=== PATIENT | male | born 1995 | race Caucasian/White ===

== ENCOUNTER 2020-10-18 08:02 | Inpatient (IN) | payer MEDICAID, OTHER ==
[~2020-10-18] VITALS: Ht 190.5 cm; Wt 79.5 kg
[2020-10-18] MEDS ORDERED: iohexol 300mg/ml 100ml inj. ONE (10:01)
--- NOTE | 2020-10-18 10:10 | NUR ---
Patient expressed concern about obtaining IV contrast due to his Mother's diagnosis of porphyria. Risks/benefits of not receiving CT scan explained. Pt consented to scan.
--- NOTE | 2020-10-18 11:25 | NUR ---
Patient states he takes Valium, no record found in pharmacy. Patient states he obtains valium in [place]. He states he traveled there one week ago and obtained Valium at that time. He states he takes 2mg QID or "as much as he needs."
[2020-10-18] MEDS ORDERED: acetaminophen 325mg tablet PO PRN ×2 (11:55)
[2020-10-18] MEDS ORDERED: magnesium 2GM in 50ml NS 50 ML IV PRN (11:55)
[2020-10-18] MEDS ORDERED: HYDROcodone/acetaminophen 5mg/325mg tablet PO PRN (11:55)
[2020-10-18] MEDS ORDERED: potassium Cl 20 mEq SR tablet PO PRN ×2 (11:55)
[2020-10-18] MEDS ORDERED: magnesium 4gm in 100ml NS 100 ML IV PRN (11:55)
[2020-10-18] MEDS ORDERED: potassium Cl 40MEQ/1/2NS 520ml 520 ML IV PRN ×2 (11:55)
[2020-10-18] MEDS ORDERED: morphine 2 MG/ML inj. syringe IV PRN ×2 (11:55)
[2020-10-18] MEDS ORDERED: normal saline 1000ml 1,000 ML IV SCH (11:55)
[2020-10-18] MEDS ORDERED: HYDROcodone/acetaminophen 10/325mg tab PO PRN (11:55)
[2020-10-18] MEDS ORDERED: HYDROmorphone inj. 0.5 MG/0.5 ML DISP.SYRIN IV PRN (11:55)
[2020-10-18] MEDS ORDERED: magnesium Cl slow-release 64mg tablet PO PRN (11:55)
[2020-10-18] MEDS ORDERED: LORazepam 2 mg/ml vial IV PRN (11:55)
[2020-10-18] MEDS ORDERED: LORazepam 1 MG tablet PO PRN (11:55)
[2020-10-18] MEDS ORDERED: ondansetron/PF 4mg/2ml inj IV PRN (11:55)
[2020-10-18 12:49] LABS: BASOPHILS # (AUTO) 0.1 X10'3 (0-0.2); BASOPHILS % (AUTO) 0.4 % (0-1); EOSINOPHILS % (AUTO) 0.1 % (0-6); HEMATOCRIT 49.3 % (42.0-52.0); HEMOGLOBIN 16.7 g/dl (14.0-17.9); LYMPHOCYTES # (AUTO) 0.8 X10'3 (1.1-4.8); MEAN CORPUSCULAR HEMOGLOBIN 34.8 PG (27.0-31.0); MEAN CORPUSCULAR HGB CONC 33.9 g/dL (33.0-36.5); MEAN CORPUSCULAR VOLUME 102.6 FL (78-98); MEAN PLATELET VOLUME 7.4 FL (7.4-10.4); MONOCYTES # (AUTO) 1.3 X10'3 (0-0.9); MONOCYTES % (AUTO) 8.4 % (2-12); NEUTROPHILS # (AUTO) 13.5 X10'3 (1.8-7.7); NEUTROPHILS % (AUTO) 86.1 % (42-75); PLATELET COUNT 225 X10'3 (140-440); RED CELL DISTRIBUTION WIDTH 12.9 % (11.5-14.5); WHITE BLOOD COUNT 15.6 X10'3 (4.5-11.0)
--- NOTE | 2020-10-18 12:53 | NUR ---
PATIENT HAS $4252 IN [place] AT BEDSIDE. REFUSED TO HAVE IT LOCKED UP. [place] TO REMAIN AT BEDSIDE UNDER PATIENTS CARE. AMOUNT VERIFIED BY 2 RN (VAIBHAV BERKOWITZ)
[2020-10-18 13:00] LABS: PARTIAL THROMBOPLASTIN TIME 31 SECONDS (22-32)
[2020-10-18 13:02] LABS: ALANINE AMINOTRANSFERASE 31 U/L (12-78); ALBUMIN 4.6 G/DL (3.4-5.0); ALBUMIN/GLOBULIN RATIO 1.5 (1.1-1.5); ALKALINE PHOSPHATASE 84 IU/L (46-116); ANION GAP 12 (8-16); ASPARTATE AMINO TRANSFERASE 25 U/L (10-37); BILIRUBIN,TOTAL 1.1 MG/DL (0.1-1.0); BLOOD UREA NITROGEN 6 MG/DL (7-18); BUN/CREATININE RATIO 6.9 (5.4-32.0); CALCIUM 9.3 MG/DL (8.5-10.1); CHLORIDE 104 MMOL/L (99-107); CREATININE 0.87 MG/DL (0.60-1.10); GLUCOSE 96 MG/DL (70-104); POTASSIUM 3.2 MMOL/L (3.5-5.1); SODIUM 143 MMOL/L (135-145); TOTAL CARBON DIOXIDE 27.4 MMOL/L (24-32); TOTAL PROTEIN 7.6 G/DL (6.4-8.2); eGFR > 90 ML/MIN
--- NOTE | 2020-10-18 13:21 | NUR ---
RELIEVING DONI BERKOWITZ FOR BREAK, PT IS RESTING QUIETLY ON GURNEY, RESP EVEN AND UNLABORED, WAITING FOR BED ASSIGNMENT, GAVE PT WARM BLANKET
[2020-10-18] MEDS ORDERED: NO HOME MEDS (13:46)
--- NOTE | 2020-10-18 13:55 | NUR ---
Report received from ED RNSilke.
--- NOTE | 2020-10-18 13:59 | NUR ---
gave report to Avis RN, pt going to [phone]
[2020-10-18] MEDS ORDERED: azithromycin/NS 500mg/250ml 250 ML IV SCH (14:00)
--- NOTE | 2020-10-18 14:35 | NUR ---
Pt arrived from ED & after checking VS pt states he wants to leave. Inst pt on importance of staying in the hospital & AMA process. Pt states he would like to make a few phone calls then he is going to leave. order to delivery supervisor notified & confirmed pt is not a prisoner & is allowed to leave AMA. notified & pt signed AMA form. Pt refused any further assessments or questions, therefore no physical assessment performed & admission forms not filled out. IV DC'd, tip intact. Pt independently ambulated to elevators.
[2020-10-18] MEDS ORDERED: CefTRIAXone 2gm/D5W 50ml BAG 50 ML IV SCH (15:00)
[2020-10-18 15:40] VITALS: BP 125/78
[2020-10-18] MEDS ORDERED: heparin, porcine 5000 units/ml vial SQ SCH (20:00)
[2020-10-18] MEDS ORDERED: K and/or MAG REPLACEMENT MC SCH (20:00)
[2020-10-18] MEDS ORDERED: docusate sod 100mg capsule PO SCH (20:00)
[2020-10-19] MEDS ORDERED: CefTRIAXone 2gm/D5W 50ml BAG 50 ML IV SCH (08:00)
[2020-10-19] MEDS ORDERED: azithromycin/NS 500mg/250ml 250 ML IV SCH (08:00)
== END 2020-10-18 15:48 | disposition left against medical advice (07) | DRG 205 ==
LOC: ER 08:03 → ED HOLD 11:55 → EDBEDREQ 13:36 → ORTHO 4S 14:34
PROVIDERS: ADMIT Internal Medicine; ATTEND Internal Medicine
PROC: B32T1ZZ Computerized Tomography (CT Scan) of Left Pulmonary Artery using Low Osmolar Contrast (ICD-10-PCS; principal; 2020-10-18)
PROC: B32S1ZZ Computerized Tomography (CT Scan) of Right Pulmonary Artery using Low Osmolar Contrast (ICD-10-PCS; 2020-10-18)
DX: S22.32XA Fracture of one rib, left side, initial encounter for closed fracture (principal); S27.1XXA Traumatic hemothorax, initial encounter; R04.2 Hemoptysis; S27.321A Contusion of lung, unilateral, initial encounter; F14.90 Cocaine use, unspecified, uncomplicated; F17.210 Nicotine dependence, cigarettes, uncomplicated; F90.9 Attention-deficit hyperactivity disorder, unspecified type; Z66 Do not resuscitate; X58.XXXA Exposure to other specified factors, initial encounter; Y93.89 Activity, other specified; Y92.89 Other specified places as the place of occurrence of the external cause; Y99.8 Other external cause status
CPT/HCPCS: 36415; 71045; 71100; 71260; 80053; 83605; 85025; 85610; 85730; 86885; 86900; 86901; 87040; 99285; G0378; J7030; Q9967